=== PATIENT | male | born 1925 | race Caucasian/White ===

== ENCOUNTER 2017-02-10 17:33 | Inpatient (IN) | payer OTHER, MEDICARE ==
[~2017-02-10] VITALS: Ht 177.8 cm; Wt 66.5 kg
[~2017-02-10 17:33] MED LIST: PANT40IN3 PO; TAMS5CAP OR; VITATAB25 PO; ZOFR4TAB3 SL
[2017-02-10 17:46] VITALS: BP 171/89; PULSE 98; RESP 15; TEMP 97.6; O2SAT 98
[2017-02-10 18:48] VITALS: BP 200/90; PULSE 61; RESP 18; TEMP 97.9; O2SAT 98
[2017-02-10] MEDS ORDERED: SODIUM CHLORIDE 0.9% FLUSH 10 ML FLUSH IVF PRN (19:00)
[2017-02-10] MEDS ORDERED: ACETAMINOPHEN 325 MG TAB PO ONE (19:00)
[2017-02-10] MEDS ORDERED: ONDANSETRON HCL 4 MG/2 ML VIAL IM ONE (19:00)
[2017-02-10] MEDS: METOPROLOL TARTRATE 5 MG/5 ML VIAL IVS SCH ×3 (19:05→20:36)
--- NOTE | 2017-02-10 19:07 | PD ---
HPI Chief Complaint: Headache Time Seen by Provider: 19:02 Travel History International Travel<30 days: No Contact w/Intl Traveler<30days: No Traveled to known affect area: No History of Present Illness HPI 89-year-old male presents the emergency department with history of fall 2 nights prior to visit with hitting the top of his head in his home. Patient states he woke up this morning with headache, and has had 5 episodes of vomiting today. He has had photophobia today as well. Patient states his headache is the worst that he's ever had. He states it is currently a 9 out of 10 He states he had no loss of consciousness when he fell. He denies any other injury when he fell. He states Saturday he did not have a headache, but this morning he woke up with one. He denies any other significant neurological complaints. Currently the patient is hypertensive, and he states he is normally not and does not take blood pressure medications. He states he only takes medications for his prostate. Patient is allergic to aspirin and seafood. PFSH Past Medical History Blood Disorders: No Cancer: No Cardiovascular Problems: No Endocrine: No Gastrointestinal Disorders: Yes (cholecystectomy in 1979) Genitourinary: No Hypertension: Yes Immune Disorder: No Musculoskeletal: No Neurologic: No Psychiatric: No Reproductive: Yes (enlarged prostate) Respiratory: No Immunizations Current: Yes Tetanus Vaccination: Unknown Past Surgical History Appendectomy: Yes (1953) Cholecystectomy: Yes (1979) Other Surgery: Yes Social History Alcohol Use: Yes (1 wine per day) Tobacco Use: No (quit 60yrs ago) Substance Use: No Allergies-Medications (Allergen,Severity, Reaction): Coded Allergies: Seafood (Verified Allergy, Severe, N/V, 02/10/17) Aspirin (Verified Allergy, Unknown, 02/10/17) Reported Meds & Prescriptions Reported Meds & Active Scripts Active Reported Latanoprost Opth Drops (Latanoprost) 0.005% Drops 1 Drop EACH EYE HS Refrigerate until opened. Vitamin E 200 Unit Cap 200 Units PO DAILY D-2000 Maximum Strength (Cholecalciferol) 2,000 Unit Tab 2,000 Units PO DAILY Tamsulosin (Tamsulosin HCl) 0.4 Mg Cap 0.04 Mg PO HS Review of Systems General / Constitutional: No: Fever Eyes: Positive: Photophobia, No: Diploplia, Blurred Vision, Drainage, Redness , Foreign Body Sensation, Pain, Tearing, Blind Spots, Visual changes, Blindness HENT: Positive: Headaches, No: Vertigo, Lightheadedness, Sore Throat, Rhinitis , Rhinorrhea, Congestion, Nosebleed, Neck Stiffness, Neck Pain, Gingival Bleeding, Dental Difficulties, Ear Discharge, Earache Cardiovascular: No: Chest Pain or Discomfort Respiratory: No: Shortness of Breath Gastrointestinal: Positive: Nausea, Vomiting, No: Diarrhea, Abdominal Pain Genitourinary: No: Dysuria Musculoskeletal: No: Pain Skin: No Rash Neurologic: No: Weakness Psychiatric: No: Depression Endocrine: No: Polydipsia Hematologic/Lymphatic: No: Easy Bruising Physical Exam Narrative GENERAL: Patient is alert and oriented but appears in moderate distress. SKIN: Warm and dry. Normal color. Normal turgor HEAD: Atraumatic. Normocephalic. Patient has tender area to the apex of the skull midline. There is no open wound, abrasion, or bony depression. EYES: Pupils equal and round. No scleral icterus. No injection or drainage. Patient does have photophobia. No nystagmus is appreciated ENT: No nasal bleeding or discharge. Mucous membranes pink and moist. Airways patent. TMs are clear bilaterally. NECK: Trachea midline. No JVD. No bony tenderness or step-off. Range of motion is full and supple without tenderness. CARDIOVASCULAR: Regular rate and rhythm. No murmurs gallops or rubs. RESPIRATORY: No accessory muscle use. Clear to auscultation. Breath sounds equal bilaterally. GASTROINTESTINAL: Abdomen soft, non-tender, nondistended. Hepatic and splenic margins not palpable. MUSCULOSKELETAL: Extremities without clubbing, cyanosis, or edema. No obvious deformities. NEUROLOGICAL: Awake and alert. No obvious cranial nerve deficits. Motor grossly within normal limits. Five out of 5 muscle strength in the arms and legs. Normal speech. PSYCHIATRIC: Appropriate mood and affect; insight and judgment normal. Data Data Last Documented VS Vital Signs Date Time Temp Pulse Resp B/P Pulse Ox O2 Delivery O2 Flow Rate FiO2 02/10/17 20:43 62 18 202/96 97 Room Air 02/10/17 18:48 97.9 Orders Complete Blood Count With Diff (02/10/17 18:57) Comprehensive Metabolic Panel (02/10/17 18:57) Ct Brain W/O Iv Contrast(Rout) (02/10/17 18:57) Ecg Monitoring (02/10/17 18:57) Iv Access Insert/Monitor (02/10/17 18:57) Oximetry (02/10/17 18:57) Sodium Chloride 0.9% Flush (Ns Flush) (02/10/17 19:00) Acetaminophen (Tylenol) (02/10/17 19:00) Ondansetron Inj (Zofran Inj) (02/10/17 19:00) Prothrombin Time / Inr (Pt) (02/10/17 18:57) Act Partial Throm Time (Ptt) (02/10/17 18:57) Metoprolol Tartrate Inj (Lopressor Inj) (02/10/17 19:00) Morphine Inj (Morphine Inj) (02/10/17 20:15) Sodium Chlorid 0.9% 500 Ml Inj (Ns 500 M (02/10/17 20:15) Ct Abd/Pel W Iv Contrast(Rout) (02/10/17 20:11) Labs Laboratory Tests Test 02/10/17 19:05 White Blood Count 7.9 TH/MM3 Red Blood Count 5.39 MIL/MM3 Hemoglobin 15.7 GM/DL Hematocrit 46.9 % Mean Corpuscular Volume 87.1 FL Mean Corpuscular Hemoglobin 29.2 PG Mean Corpuscular Hemoglobin 33.5 % Concent Red Cell Distribution Width 13.0 % Platelet Count 147 TH/MM3 Mean Platelet Volume 9.4 FL Neutrophils (%) (Auto) 80.5 % Lymphocytes (%) (Auto) 10.8 % Monocytes (%) (Auto) 8.4 % Eosinophils (%) (Auto) 0.2 % Basophils (%) (Auto) 0.1 % Neutrophils # (Auto) 6.3 TH/MM3 Lymphocytes # (Auto) 0.8 TH/MM3 Monocytes # (Auto) 0.7 TH/MM3 Eosinophils # (Auto) 0.0 TH/MM3 Basophils # (Auto) 0.0 TH/MM3 CBC Comment DIFF FINAL Differential Comment Prothrombin Time 12.3 SEC Prothromb Time International 1.1 RATIO Ratio Activated Partial 26.4 SEC Thromboplast Time Sodium Level 131 MEQ/L Potassium Level 4.2 MEQ/L Chloride Level 98 MEQ/L Carbon Dioxide Level 27.2 MEQ/L Anion Gap 6 MEQ/L Blood Urea Nitrogen 13 MG/DL Creatinine 0.94 MG/DL Estimat Glomerular Filtration 76 ML/MIN Rate Random Glucose 108 MG/DL Calcium Level 8.5 MG/DL Total Bilirubin 0.9 MG/DL Aspartate Amino Transf 18 U/L (AST/SGOT) Alanine Aminotransferase 22 U/L (ALT/SGPT) Alkaline Phosphatase 73 U/L Total Protein 6.5 GM/DL Albumin 3.3 GM/DL MDM Medical Decision Making Medical Screen Exam Complete: Yes Emergency Medical Condition: Yes Differential Diagnosis Fall. Scalp contusion. Intracranial bleed. Subarachnoid bleed. Nausea and vomiting. Narrative Course Patient appears medically stable at time of exam. Labs ordered including CBC, CMP, PT PTT and INR. CT of the brain is ordered without contrast. Patient is given Tylenol [address] showed no acute findings per radiologist. Labs show normal CBC, CMP shows sodium 131, normal potassium and chloride, BUN of 13, creatinine of 0.94. Coagulation studies show PT of 12.3, INR 1.1, APTT of 26.4. Patient is discussed with Dr. Feldman after change of shift. She recommends trial of pain medication and reassessment of blood pressure. Patient was given 4 mg morphine IV, and after 20 minutes blood pressure improved to 184/88. Patient states his headache is only slightly improved. 2114 hrs. the patient was discussed again with Dr. Feldman who recommends a trial of amlodipine and another dose of morphine IV. Call was placed to the hospitalist for admission for hypertension with headache. Diagnosis Primary Impression: Intractable headache Qualified Code: R51 - Acute intractable headache, unspecified headache type Additional Impression: Hypertension Qualified Code: I10 - Hypertension, unspecified type Admitting Information Admitting Physician Requests: Admit Condition: Stable Kalia Bell Feb 10, 2017 19:07
[2017-02-10 19:27] LABS: AUTOMATED NEUTROPHIL # 6.3 TH/MM3 (1.8-7.7); BASOPHIL % 0.1 % (0.0-2.0); EOSINOPHIL % 0.2 % (0.0-4.0); HEMATOCRIT 46.9 % (39.0-51.0); HEMO FLAGS DIFF FINAL; LYMPH % 10.8 % (9.0-44.0); LYMPHOCYTE # 0.8 TH/MM3 (1.0-4.8); MEAN CELL VOLUME 87.1 FL (80.0-100.0); MEAN CORPUSCULAR HEMOGLOBIN 29.2 PG (27.0-34.0); MEAN CORPUSCULAR HGB CONC 33.5 % (32.0-36.0); MONO % 8.4 % (0.0-8.0); NEUT % 80.5 % (16.0-70.0); PLATELET COUNT 147 TH/MM3 (150-450); RED BLOOD COUNT 5.39 MIL/MM3 (4.50-5.90); WHITE BLOOD COUNT 7.9 TH/MM3 (4.0-11.0)
[2017-02-10 19:38] LABS: APTT (PATIENT) 26.4 SEC (24.3-30.1); INTERNATIONAL NORMALIZED RATIO 1.1 RATIO; PROTHROMBIN TIME - PATIENT 12.3 SEC (9.8-11.6)
--- NOTE | 2017-02-10 19:51 | RADRPT ---
EXAM DATE/TIME: 02/10/2017 19:40 [facility] COMPARISON: No previous studies available for comparison. INDICATIONS : Fall last night with trauma to head. Cephalgia. RADIATION DOSE: 56.35 CTDIvol (mGy) MEDICAL HISTORY : Hypertension. SURGICAL HISTORY : Cholecystectomy. ENCOUNTER: Initial ACUITY: 1 day PAIN SCALE: 7/10 LOCATION: Bilateral head TECHNIQUE: Multiple contiguous axial images were obtained of the head. Using automated exposure control and adj ustment of the mA and/or kV according to patient size, radiation dose was kept as low as reasonably a chievable to obtain optimal diagnostic quality images. DICOM format image data is available electro nically for review and comparison. FINDINGS: CEREBRUM: The ventricles are normal for age. There are chronic small vessel ischemic changes. No evidence of m idline shift, mass lesion, hemorrhage or acute infarction. No extra-axial fluid collections are seen . POSTERIOR FOSSA: The cerebellum and brainstem are intact. The 4th ventricle is midline. The cerebellopontine angle i s unremarkable. EXTRACRANIAL: The visualized portion of the orbits is intact. SKULL: The calvaria is intact. No evidence of skull fracture. CONCLUSION: 1. Mild atrophy and chronic small vessel ischemic change. 2. No evidence of fracture or hemorrhage. Suraj Chakraborty MD on February 10, 2017 at 19:49 Board Certified Radiologist. This report was verified electronically.
[2017-02-10 19:57] LABS: ANION GAP 6 MEQ/L (5-15); AST (GOT) 18 U/L (15-37); BICARBONATE 27.2 MEQ/L (21.0-32.0); BLOOD UREA NITROGEN 13 MG/DL (7-18); CHLORIDE 98 MEQ/L (98-107); GLOMERULAR FILTRATION RATE 76 ML/MIN (>89); POTASSIUM 4.2 MEQ/L (3.5-5.1); SODIUM (NA) 131 MEQ/L (136-145)
[2017-02-10 19:59] LABS: ALT (GPT) 22 U/L (12-78)
[2017-02-10 20:01] LABS: ALKALINE PHOSPHATASE 73 U/L (45-117); TOTAL BILIRUBIN ADULT 0.9 MG/DL (0.2-1.0)
--- NOTE | 2017-02-10 20:03 | PD ---
Physical Exam Narrative General: The patient is a well-developed well-nourished male in no acute distress. Blood pressure on my arrival to the room is 199 systolic. Head and Neck exam: Head is normocephalic atraumatic. Eyes: EOMI, pupils are pinpoint bilaterally. Nose: Midline septum with pink mucous membranes Mouth: Dentition unremarkable. Moist mucus membranes. Posterior oropharynx is not erythematous. No tonsillar hypertrophy. Uvula midline. Airway patent. Neck: No palpable lymphadenopathy. No nuchal rigidity. No thyromegaly. No spinous process tenderness to palpation. No step-off or crepitus. No erythema or ecchymosis. Cardiovascular: Regular rate and rhythm without murmurs, gallops, or rubs. No pulse deficit to the extremities and simultaneous auscultation and palpation of his radial artery. Lungs: Clear to auscultation bilaterally. No wheezes, rhonchi, or rales. Abdomen: Soft, with tenderness on palpation of the left lower quadrant of the abdomen, no other tenderness on palpation of the other quadrants. No guarding, rebound, or rigidity. Negative Pemberton sign. Normal bowel sounds are audible. No tenderness on palpation of McBurney's point. Extremities: No clubbing, cyanosis, or edema. 2+ pulses in all 4 extremities. After tenderness on palpation. Back: No costovertebral angle tenderness to palpation. Neurologic Exam: Cranial nerves 2-12 were intact on exam. Strength is 5/5 in all 4 extremities. No sensory deficits noted. Skin Exam: No rash noted. Intact skin that is warm and dry. Data Data Last Documented VS Vital Signs Date Time Temp Pulse Resp B/P Pulse Ox O2 Delivery O2 Flow Rate FiO2 02/10/17 20:43 62 18 202/96 97 Room Air 02/10/17 18:48 97.9 Orders Complete Blood Count With Diff (02/10/17 18:57) Comprehensive Metabolic Panel (02/10/17 18:57) Ct Brain W/O Iv Contrast(Rout) (02/10/17 18:57) Ecg Monitoring (02/10/17 18:57) Iv Access Insert/Monitor (02/10/17 18:57) Oximetry (02/10/17 18:57) Sodium Chloride 0.9% Flush (Ns Flush) (02/10/17 19:00) Acetaminophen (Tylenol) (02/10/17 19:00) Ondansetron Inj (Zofran Inj) (02/10/17 19:00) Prothrombin Time / Inr (Pt) (02/10/17 18:57) Act Partial Throm Time (Ptt) (02/10/17 18:57) Metoprolol Tartrate Inj (Lopressor Inj) (02/10/17 19:00) Morphine Inj (Morphine Inj) (02/10/17 20:15) Sodium Chlorid 0.9% 500 Ml Inj (Ns 500 M (02/10/17 20:15) Ct Abd/Pel W Iv Contrast(Rout) (02/10/17 20:11) Enalaprilat Inj (Vasotec Inj) (02/10/17 21:15) Morphine Inj (Morphine Inj) (02/10/17 21:30) Admit Order (Ed Use Only) (02/10/17 21:23) Labs Laboratory Tests Test 02/10/17 19:05 White Blood Count 7.9 TH/MM3 Red Blood Count 5.39 MIL/MM3 Hemoglobin 15.7 GM/DL Hematocrit 46.9 % Mean Corpuscular Volume 87.1 FL Mean Corpuscular Hemoglobin 29.2 PG Mean Corpuscular Hemoglobin 33.5 % Concent Red Cell Distribution Width 13.0 % Platelet Count 147 TH/MM3 Mean Platelet Volume 9.4 FL Neutrophils (%) (Auto) 80.5 % Lymphocytes (%) (Auto) 10.8 % Monocytes (%) (Auto) 8.4 % Eosinophils (%) (Auto) 0.2 % Basophils (%) (Auto) 0.1 % Neutrophils # (Auto) 6.3 TH/MM3 Lymphocytes # (Auto) 0.8 TH/MM3 Monocytes # (Auto) 0.7 TH/MM3 Eosinophils # (Auto) 0.0 TH/MM3 Basophils # (Auto) 0.0 TH/MM3 CBC Comment DIFF FINAL Differential Comment Prothrombin Time 12.3 SEC Prothromb Time International 1.1 RATIO Ratio Activated Partial 26.4 SEC Thromboplast Time Sodium Level 131 MEQ/L Potassium Level 4.2 MEQ/L Chloride Level 98 MEQ/L Carbon Dioxide Level 27.2 MEQ/L Anion Gap 6 MEQ/L Blood Urea Nitrogen 13 MG/DL Creatinine 0.94 MG/DL Estimat Glomerular Filtration 76 ML/MIN Rate Random Glucose 108 MG/DL Calcium Level 8.5 MG/DL Total Bilirubin 0.9 MG/DL Aspartate Amino Transf 18 U/L (AST/SGOT) Alanine Aminotransferase 22 U/L (ALT/SGPT) Alkaline Phosphatase 73 U/L Total Protein 6.5 GM/DL Albumin 3.3 GM/DL [facility] Medical Record Reviewed: Yes Supervised Visit with AUTUMN: Yes Interpretation(s) Last Impressions Abdomen/Pelvis CT 02/10/172010 Signed Impressions: Service Date/Time: Friday, February 10, 2017 22:04 - CONCLUSION: 1. No evidence of acute visceral injury. 2. Unremarkable bowel gas pattern. 3. The prostate gland remains markedly enlarged and. 4. Small hiatal hernia. Suraj Chakraborty MD Head CT 02/10/171856 Signed Impressions: Service Date/Time: Friday, February 10, 2017 19:40 - CONCLUSION: 1. Mild atrophy and chronic small vessel ischemic change. 2. No evidence of fracture or hemorrhage. Suraj Chakraborty MD Narrative Course I, Dr. Feldman, have reviewed the advance practice practitioner's documentation and am in agreement, met with the patient face to face, made the diagnosis, and the medical decision making was done by me. *My assessment and Findings: The patient is an 89-year-old male who presents to [facility] emergency Department with a history of slipping and falling when getting out of bed in the night in the early hours of Saturday morning. The patient reports that he fell and hit his head. He denies having any loss of consciousness. He denies any neck pain. He reports that since then he had a headache across his forehead and behind his eyes. He reports that he has light sensitivity. He reports that today he has had nausea and vomiting 5. He reports that he last moved his bowels yesterday. He denies having any blood in his stool or black or tarry stools. The patient reports having history of glaucoma. The patient reports that he has been using his eyedrops regularly. Otherwise on review of systems, he denies having any recent fevers, cough, congestion, sore throat, postnasal drip, nasal discharge, chest pain, shortness of breath, urinary symptoms, or other neurologic symptoms. His physical examination is unremarkable except for having left lower quadrant abdominal pain on palpation. Neurologic examination is within normal limits. The patient had laboratory studies and imaging ordered. CT scan of the brain showed mild atrophy and chronic small vessel ischemic change, no evidence of fracture or hemorrhage. CT scan of abdomen and pelvis showed no evidence of acute visceral injury, unremarkable bowel gas pattern, prostate gland remains enlarged and he has a small hiatal hernia. The patient was given Vasotec 1.25 mg IV for continued blood pressure medication after the patient's headache began to improve with morphine and Zofran administration. The patients results were discussed with the patient, including the plan of care. I explained that further testing and/ or monitoring is indicated based on the patients history, examination, and/ or laboratory findings. Therefore, I recommended admission for additional evaluation. The patient expressed understanding and was agreeable with this plan. The patient was admitted to the hospital in stable condition and sent to a bed under the care of [facility] service. Diagnosis Primary Impression: Intractable headache Qualified Code: R51 - Acute intractable headache, unspecified headache type Additional Impressions: Nausea & vomiting Qualified Code: R11.2 - Non-intractable vomiting with nausea, unspecified vomiting type Hypertension Qualified Code: I10 - Hypertension, unspecified type Admitting Information Admitting Physician Requests: Observation Condition: Stable Belen Feldman MD Feb 10, 2017 20:03
[2017-02-10] MEDS ORDERED: SODIUM CHLORID 0.9% 500 ML INJ 500 ML IV ONE (20:15)
[2017-02-10] MEDS ORDERED: MORPHINE SULFATE 8 MG/ML INJ IV PUSH ONE (20:15)
[2017-02-10] MEDS ORDERED: TAMS0.4C4 PO (20:40)
[2017-02-10] MEDS ORDERED: VITA200C3 PO (20:40)
[2017-02-10] MEDS ORDERED: D-20TAB3 PO (20:40)
[2017-02-10] MEDS ORDERED: GABA600T PO (20:40)
[2017-02-10] MEDS ORDERED: LATA0.002 EACH EYE (20:41)
[2017-02-10 20:43] VITALS: BP 202/96; PULSE 62; RESP 18; O2SAT 97
[2017-02-10] MEDS ORDERED: ENALAPRILAT 1.25 MG/ML VIAL IV PUSH ONE (21:15)
[2017-02-10] MEDS ORDERED: MORPHINE SULFATE 4 MG/ML INJ IV PUSH ONE (21:30)
[2017-02-10] MEDS ORDERED: SENNOSIDES 8.6 MG TAB PO PRN (21:45)
[2017-02-10] MEDS ORDERED: BISACODYL 10 MG SUPP RECTAL PRN (21:45)
[2017-02-10] MEDS ORDERED: NALOXONE HCL 0.4 MG/ML AMP IV PRN (21:45)
[2017-02-10] MEDS ORDERED: ACETAMINOPHEN 325 MG TAB PO PRN (21:45)
[2017-02-10] MEDS ORDERED: LACTULOSE SYRUP 20 GM/30 ML CUP PO PRN (21:45)
[2017-02-10] MEDS ORDERED: MAGNESIUM HYDROXIDE SUSP 30 ML CUP PO PRN (21:45)
[2017-02-10] MEDS ORDERED: SODIUM CHLORIDE 0.9% FLUSH 10 ML FLUSH IV FLUSH PRN (21:45)
[2017-02-10 21:54] VITALS: BP 184/88; PULSE 61; RESP 16; O2SAT 97
[2017-02-10] MEDS: ONDANSETRON HCL 4 MG/2 ML VIAL IVP PRN (22:00)
[2017-02-10] MEDS ORDERED: IOHEXOL 350 MG/ML 10 ML VIAL (for RAD DIAG) IV ONE (22:06)
[2017-02-10 22:20] VITALS: BP 196/86; PULSE 66; RESP 18; O2SAT 96
--- NOTE | 2017-02-10 22:25 | RADRPT ---
EXAM DATE/TIME: 02/10/2017 22:04 [facility] COMPARISON: CT ABDOMEN & PELVIS W CONTRAST, March 17, 2016, 1:23. INDICATIONS : Trauma, fall last night. Left lower quadrant pain with nausea and vomiting. IV CONTRAST: 95 cc Omnipaque 350 (iohexol) IV ORAL CONTRAST: No oral contrast ingested. RADIATION DOSE: 5.85 CTDIvol (mGy) MEDICAL HISTORY : Hypertension. SURGICAL HISTORY : Cholecystectomy. Appendectomy. ENCOUNTER: Initial ACUITY: 1 day PAIN SCALE: 7/10 LOCATION: Left lower quadrant TECHNIQUE: Volumetric scanning of the abdomen and pelvis was performed. Using automated exposure control and ad justment of the mA and/or kV according to patient size, radiation dose was kept as low as reasonably achievable to obtain optimal diagnostic quality images. DICOM format image data is available electro nically for review and comparison. FINDINGS: LOWER LUNGS: The visualized lower lungs are clear. LIVER: Homogeneous density without lesion. There is no dilation of the biliary tree. Status post cholecyste ctomy. SPLEEN: Normal size without lesion. PANCREAS: Within normal limits. KIDNEYS: Normal in size and shape. There is no mass, stone or hydronephrosis. ADRENAL GLANDS: Within normal limits. VASCULAR: There is no aortic aneurysm. BOWEL/MESENTERY: There is a small hiatal hernia. The stomach, small bowel, and colon demonstrate no acute abnormality. There is no free intraperitoneal air or fluid. ABDOMINAL WALL: Within normal limits. RETROPERITONEUM: There is no lymphadenopathy. BLADDER: No wall thickening or mass. REPRODUCTIVE: The prostate gland remains markedly enlarged and inhomogeneous. INGUINAL: There is no lymphadenopathy or hernia. MUSCULOSKELETAL: Within normal limits for patient age. CONCLUSION: 1. No evidence of acute visceral injury. 2. Unremarkable bowel gas pattern. 3. The prostate gland remains markedly enlarged and. 4. Small hiatal hernia. Suraj Chakraborty MD on February 10, 2017 at 22:21 Board Certified Radiologist. This report was verified electronically.
--- NOTE | 2017-02-10 23:04 | HHI.HP ---
[facility] Service [facility] Primary Care Physician Pj Schulte MD Admission Diagnosis Intractible LI with Hypertension Diagnoses: Chief Complaint: Headache Travel History International Travel<30 Days: No Contact w/Intl Traveler <30 Da: No Traveled to Known Affected Are: No History of Present Illness Written by CAREN Vegas acting as scribe for Dr. Isabel] on 02/10/17 at 22:57. 89 y/o male with a history of enlarged prostate and glaucoma presented to the ED with complaints of a severe headache, nausea, and vomiting. Patient states he was trying to get out of bed on Saturday night and fell and hit his head. The last few days he began to have increased headaches, nausea and vomiting. Pain is throbbing on top of his head and behind his eyes. Denies any chest pain, or sob. Review of Systems Constitutional: DENIES: Fever, Chills Respiratory: DENIES: Cough, Sputum production, Shortness of breath Cardiovascular: DENIES: Chest pain Gastrointestinal: COMPLAINS OF: Nausea, Vomiting Genitourinary: DENIES: Hematuria, Dysuria Musculoskeletal: DENIES: Back pain, Neck pain Integumentary: DENIES: Rash Hematologic/lymphatic: DENIES: Lymphadenopathy Immunologic/allergic: DENIES: Urticaria Neurologic: COMPLAINS OF: Headache Past Family Social History Past Medical History Enlarged prostate Chronic back pain Glaucoma Past Surgical History Multiple eye surgeries Reported Medications Reported Meds & Active Scripts Active Reported Latanoprost Opth Drops (Latanoprost) 0.005% Drops 1 Drop EACH EYE HS Refrigerate until opened. Vitamin E 200 Unit Cap 200 Units PO DAILY D-2000 Maximum Strength (Cholecalciferol) 2,000 Unit Tab 2,000 Units PO DAILY Tamsulosin (Tamsulosin HCl) 0.4 Mg Cap 0.04 Mg PO HS Allergies: Coded Allergies: Seafood (Verified Allergy, Severe, N/V, 02/10/17) Aspirin (Verified Allergy, Unknown, 02/10/17) Active Ordered Medications Current Medications Medications (Trade) Dose Ordered Sig/Jacobo Route Start Time Stop Time Status Last Admin (NS Flush) 2 ml UNSCH PRN IV FLUSH 02/10/17 21:45 (NS Flush) 2 ml BID IV FLUSH 02/11/17 09:00 (Tylenol) 650 mg Q4H PRN PO 02/10/17 21:45 (Zofran Inj) 4 mg Q6H PRN IVP 02/10/17 21:45 02/10/17 22:00 (Narcan Inj) 0.4 mg UNSCH PRN IV 02/10/17 21:45 (Clementina-Colace) 1 tab BID PO 02/11/17 09:00 (Milk Of Magnesia Liq) 30 ml Q12H PRN PO 02/10/17 21:45 (Senokot) 17.2 mg Q12H PRN PO 02/10/17 21:45 (Dulcolax Supp) 10 mg DAILY PRN RECTAL 02/10/17 21:45 (Lactulose Liq) 30 ml DAILY PRN PO 02/10/17 21:45 Family History Sister: Cancer No family history of heart disease or DM Social History Tobacco use: Quit age 36 Alcohol use: glass of wine a day Illicit drug use: Denies Physical Exam Vital Signs Vital Signs Date Time Temp Pulse Resp B/P Pulse Ox O2 Delivery O2 Flow Rate FiO2 02/10/17 22:20 66 18 196/86 96 Room Air 02/10/17 21:54 61 16 184/88 97 Room Air 02/10/17 20:43 62 18 202/96 97 Room Air 02/10/17 18:48 67 18 98 Room Air 02/10/17 18:48 97.9 61 18 200/90 98 02/10/17 17:46 97.6 98 15 171/89 98 Physical Exam GENERAL: This is a well-nourished, well-developed patient, in no apparent distress. SKIN: No rashes, ecchymoses or lesions. Cool and dry. HEAD: Atraumatic. Normocephalic. No temporal or scalp tenderness. EYES: Pupils equal round and reactive. Extraocular motions intact. No scleral icterus. No injection or drainage. ENT: Nose without bleeding, purulent drainage or septal hematoma. Throat without erythema, tonsillar hypertrophy or exudate. Uvula midline. Airway patent. NECK: Trachea midline. No JVD or lymphadenopathy. Supple, nontender, no meningeal signs. CARDIOVASCULAR: Regular rate and rhythm without murmurs, gallops, or rubs. RESPIRATORY: Clear to auscultation. Breath sounds equal bilaterally. No wheezes , rales, or rhonchi. GASTROINTESTINAL: Abdomen soft, RLQ tenderness, nondistended. No hepato- splenomegaly, or palpable masses. No guarding. MUSCULOSKELETAL: Extremities without clubbing, cyanosis, or edema. No joint tenderness, effusion, or edema noted. Left calf tenderness. Negative Homans sign bilaterally. NEUROLOGICAL: Awake and alert. Motor and sensory grossly within normal limits. Five out of 5 muscle strength in all muscle groups. Normal speech. Laboratory Laboratory Tests Test 02/10/17 19:05 White Blood Count 7.9 Red Blood Count 5.39 Hemoglobin 15.7 Hematocrit 46.9 Mean Corpuscular Volume 87.1 Mean Corpuscular Hemoglobin 29.2 Mean Corpuscular Hemoglobin 33.5 Concent Red Cell Distribution Width 13.0 Platelet Count 147 Mean Platelet Volume 9.4 Neutrophils (%) (Auto) 80.5 Lymphocytes (%) (Auto) 10.8 Monocytes (%) (Auto) 8.4 Eosinophils (%) (Auto) 0.2 Basophils (%) (Auto) 0.1 Neutrophils # (Auto) 6.3 Lymphocytes # (Auto) 0.8 Monocytes # (Auto) 0.7 Eosinophils # (Auto) 0.0 Basophils # (Auto) 0.0 CBC Comment DIFF FINAL Differential Comment Prothrombin Time 12.3 Prothromb Time International 1.1 Ratio Activated Partial 26.4 Thromboplast Time Sodium Level 131 Potassium Level 4.2 Chloride Level 98 Carbon Dioxide Level 27.2 Anion Gap 6 Blood Urea Nitrogen 13 Creatinine 0.94 Estimat Glomerular Filtration 76 Rate Random Glucose 108 Calcium Level 8.5 Total Bilirubin 0.9 Aspartate Amino Transf 18 (AST/SGOT) Alanine Aminotransferase 22 (ALT/SGPT) Alkaline Phosphatase 73 Total Protein 6.5 Albumin 3.3 Result Diagram: 02/10/17190402/10/171904 Imaging Last Impressions Abdomen/Pelvis CT 02/10/172010 Signed Impressions: Service Date/Time: Friday, February 10, 2017 22:04 - CONCLUSION: 1. No evidence of acute visceral injury. 2. Unremarkable bowel gas pattern. 3. The prostate gland remains markedly enlarged and. 4. Small hiatal hernia. Suraj Chakraborty MD Head CT 02/10/17 [id number] Signed Impressions: Service Date/Time: Friday, February 10, 2017 19:40 - CONCLUSION: 1. Mild atrophy and chronic small vessel ischemic change. 2. No evidence of fracture or hemorrhage. Suraj Chakraborty MD Assessment and Plan Problem List: (1) Intractable headache ICD Code: R51 Status: Acute (2) Hypertension ICD Code: I10 Status: Acute Assessment and Plan 89 y/o male with a history of enlarged prostate and glaucoma presented to the ED with complaints of a severe headache, nausea, and vomiting. Intractable headache, likely a result of elevated hypertension Head CT reviewed and is unremarkable -Cardene drip for BP control -Monitor vitals -Morphine IV for pain management BPH, chronic -Restart home medications Flomax DVT prophylaxis: SCDs This note was transcribed by idlip Jain. I, Dr. Jn Corona personally performed the history, physical exam, and medical decision making; and confirmed the accuracy of the information in the transcribed note. Authenticated by Dr. Jn Corona on 02/11/17 at 01:14. Discussed Condition With Patient and patient's Physician Certification 2 Midnight Certification Type: Admission for Inpatient Services Order for Inpatient Services The services are ordered in accordance with Medicare regulations or non- Medicare payer requirements, as applicable. In the case of services not specified as inpatient-only, they are appropriately provided as inpatient services in accordance with the 2-midnight benchmark. Estimated LOS (days): 2 days is the estimated time the patient will need to remain in the hospital, assuming treatment plan goals are met and no additional complications. Post-Hospital Plan: Home Problem Qualifiers (1) Intractable headache: Qualified Code: R51 - Acute intractable headache, unspecified headache type (2) Hypertension: Qualified Code: I10 - Hypertension, unspecified type Princess Jain Feb 10, 2017 23:03 Jn Corona MD Feb 11, 2017 01:14
[2017-02-10] MEDS ORDERED: niCARdipine INJ 25 MG in SODIUM CHLOR 0.9% 250 ML INJ 250 ML IV SCH (23:15)
[2017-02-10 23:27] VITALS: BP 196/86; PULSE 62; RESP 16; O2SAT 97
[2017-02-11] VITALS (27 sets, daily range): BP systolic 123–186; BP diastolic 57–139; PULSE 57–72; RESP 14–43; TEMP 96.7–98.8; O2SAT 94–97
[2017-02-11] MEDS ORDERED: BENZOCAINE 6 MG/MENTHOL 10 MG LOZENGE BUCCAL PRN (01:15)
[2017-02-11] MEDS ORDERED: MORPHINE SULFATE 8 MG/ML INJ IV PUSH PRN (01:15)
[2017-02-11] MEDS ORDERED: PROCHLORPERAZINE INJ 10 MG/2 ML VIAL IV PUSH ONE (01:15)
[2017-02-11] MEDS ORDERED: CHLORHEXIDINE GLUCONATE 2 % 1 PACK (2 CLOTHS)(extra cloths) TOPICAL PRN (01:45)
[2017-02-11] MEDS: CHLORHEXIDINE GLUCONATE 2 % 1 PACK (2 CLOTHS)(taper/protocol) TOPICAL SCH (04:00)
[2017-02-11 05:56] LABS: BICARBONATE 26.2 MEQ/L (21.0-32.0); POTASSIUM 3.6 MEQ/L (3.5-5.1)
[2017-02-11] MEDS ORDERED: DOCUSATE SODIUM 50 MG/SENNA 8.6 MG TAB PO SCH (09:00)
[2017-02-11] MEDS: SODIUM CHLORIDE 0.9% FLUSH 10 ML FLUSH IV FLUSH SCH ×2 (09:00→22:50)
--- NOTE | 2017-02-11 09:13 | HHI.PR ---
Subjective Remarks Follow-up malignant hypertensive emergency 02/11/17-patient seen and examined, reports improvement of headache although still 4/10 and denies any visual changes. Had one episode of emesis last night otherwise stable this morning. Objective Vitals Vital Signs Date Time Temp Pulse Resp B/P Pulse Ox O2 Delivery O2 Flow Rate FiO2 02/11/17 06:00 60 02/11/17 04:00 60 02/11/17 04:00 97.6 60 16 123/59 94 02/11/17 02:08 96.7 67 20 127/57 94 02/11/17 01:31 96 02/11/17 00:11 57 16 163/83 96 Room Air 02/11/17 00:10 57 16 170/80 96 Room Air 02/11/17 00:03 57 16 170/80 97 Room Air 02/10/17 23:27 62 16 196/86 97 Room Air 02/10/17 22:20 66 18 196/86 96 Room Air 02/10/17 21:54 61 16 184/88 97 Room Air 02/10/17 20:43 62 18 202/96 97 Room Air 02/10/17 18:48 67 18 98 Room Air 02/10/17 18:48 97.9 61 18 200/90 98 02/10/17 17:46 97.6 98 15 171/89 98 I/O 02/10/17 02/10/17 02/10/17 02/11/17 02/11/17 02/11/17 07:00 15:00 23:00 07:00 15:00 23:00 Intake Total 247 ml Output Total 725 ml Balance -478 ml Intake Oral 120 ml IV Total 127 ml Output Urine Total 725 ml # Voids 3 # Bowel Movements 0 Result Diagram: 02/10/17 1905 02/11/17 0436 Imaging Last Impressions Abdomen/Pelvis CT 02/10/172010 Signed Impressions: Service Date/Time: Friday, February 10, 2017 22:04 - CONCLUSION: 1. No evidence of acute visceral injury. 2. Unremarkable bowel gas pattern. 3. The prostate gland remains markedly enlarged and. 4. Small hiatal hernia. Suraj Chakraborty MD Head CT 02/10/17 [id number] Signed Impressions: Service Date/Time: Friday, February 10, 2017 19:40 - CONCLUSION: 1. Mild atrophy and chronic small vessel ischemic change. 2. No evidence of fracture or hemorrhage. Suraj Chakraborty MD Objective Remarks GENERAL: NAD SKIN: Warm and dry. HEAD: Normocephalic. EYES: No scleral icterus. No injection or drainage. NECK: Supple, trachea midline. No JVD or lymphadenopathy. CARDIOVASCULAR: Regular rate and rhythm without murmurs, gallops, or rubs. RESPIRATORY: Breath sounds equal bilaterally. No accessory muscle use. GASTROINTESTINAL: Abdomen soft, non-tender, nondistended. MUSCULOSKELETAL: No cyanosis, or edema. BACK: Nontender without obvious deformity. No CVA tenderness. A/P Problem List: (1) Hypertensive emergency ICD Code: I16.1 Status: Acute (2) Intractable headache ICD Code: R51 Status: Acute (3) Hypertension ICD Code: I10 Status: Acute Assessment and Plan 89-year-old man with Hypertensive emergency Currently on Cardene drip and SBP less than 160 this morning Wean off Cardene drip and start Norvasc 5 mg daily Check 2-D echo, lipid profile Intractable headache Secondary to hypertensive emergency Improving, treat as in above Intractable emesis without vomiting CT abdomen/pelvics noted without any evidence of acute visceral injury Antiemetic when necessary Benign prostatic hyperplasia Continue Flomax DVT prophylaxis SCDs Patient to remain in ICU until blood pressure stable on oral medication then transfer to med/Surg thompson Total critical care spent 32 minutes Problem Qualifiers (1) Intractable headache: Qualified Code: R51 - Acute intractable headache, unspecified headache type (2) Hypertension: Qualified Code: I10 - Hypertension, unspecified type Jose Mendez MD Feb 11, 2017 09:13
[2017-02-11] MEDS ORDERED: hydrALAZINE HCL 25 MG TAB PO PRN (09:15)
[2017-02-11] MEDS ORDERED: ENALAPRILAT 1.25 MG/ML VIAL IV PUSH PRN (09:15)
[2017-02-11] MEDS ORDERED: amLODIPine BESYLATE 5 MG TAB PO SCH (09:15)
[2017-02-11] MEDS: TAMSULOSIN HCL 0.4 MG CAP PO SCH (22:50)
[2017-02-11] MEDS: LATANOPROST 0.005% OPHT SOLN 2.5 ML BTL EACH EYE SCH (23:46)
[2017-02-12] VITALS (23 sets, daily range): BP systolic 144–193; BP diastolic 67–89; PULSE 62–77; RESP 13–25; TEMP 97.7–98.4; O2SAT 93–97
[2017-02-12] MEDS: CHLORHEXIDINE GLUCONATE 2 % 1 PACK (2 CLOTHS)(taper/protocol) TOPICAL SCH (03:08)
[2017-02-12] MEDS: ONDANSETRON HCL 4 MG/2 ML VIAL IVP PRN (08:56)
[2017-02-12] MEDS: SODIUM CHLORIDE 0.9% FLUSH 10 ML FLUSH IV FLUSH SCH ×2 (09:00→21:11)
--- NOTE | 2017-02-12 09:00 | HHI.PR ---
Subjective Remarks Follow-up malignant hypertensive emergency 02/11/17-patient seen and examined, reports improvement of headache although still 4/10 and denies any visual changes. Had one episode of emesis last night otherwise stable this morning. 02/12/17-patient seen and examined, complains of headaches as well as nausea but no emesis morning. BP up but patient denies any chest pain or shortness of breath Objective Vitals Vital Signs Date Time Temp Pulse Resp B/P Pulse Ox O2 Delivery O2 Flow Rate FiO2 02/12/17 06:00 71 02/12/17 04:00 98.4 65 20 173/80 95 02/12/17 04:00 65 02/12/17 02:00 62 02/12/17 00:00 63 02/12/17 00:00 97.7 62 20 188/85 94 02/11/17 22:00 62 02/11/17 20:00 71 02/11/17 20:00 98.8 71 22 186/139 96 02/11/17 16:00 98.2 66 20 157/75 97 02/11/17 15:33 64 19 159/77 96 02/11/17 15:30 65 19 176/78 96 02/11/17 15:00 65 16 164/76 96 02/11/17 14:30 62 14 150/69 95 02/11/17 14:00 63 18 154/70 96 02/11/17 13:31 72 43 175/78 95 02/11/17 13:00 63 20 136/65 96 02/11/17 12:30 63 18 137/66 95 02/11/17 12:00 65 22 140/67 96 02/11/17 11:30 63 14 136/65 94 02/11/17 11:00 63 15 142/65 95 02/11/17 10:30 65 16 125/62 96 02/11/17 10:00 97.6 66 19 147/67 96 02/11/17 09:30 65 19 144/67 96 02/11/17 09:00 61 17 148/67 96 I/O 02/11/17 02/11/17 02/11/17 02/12/17 02/12/17 02/12/17 06:59 14:59 22:59 06:59 14:59 22:59 Intake Total 247 ml 480 ml 300 ml 0 ml Output Total 725 ml 800 ml 300 ml Balance -478 ml 480 ml -500 ml -300 ml Intake Oral 120 ml 480 ml 300 ml 0 ml IV Total 127 ml 0 ml 0 ml Output Urine Total 725 ml 800 ml 300 ml # Voids 3 10 # Bowel Movements 0 0 0 0 Result Diagram: 02/10/17 1905 02/11/17 0436 Objective Remarks GENERAL: NAD SKIN: Warm and dry. HEAD: Normocephalic. EYES: No scleral icterus. No injection or drainage. NECK: Supple, trachea midline. No JVD or lymphadenopathy. CARDIOVASCULAR: Regular rate and rhythm without murmurs, gallops, or rubs. RESPIRATORY: Breath sounds equal bilaterally. No accessory muscle use. GASTROINTESTINAL: Abdomen soft, non-tender, nondistended. MUSCULOSKELETAL: No cyanosis, or edema. BACK: Nontender without obvious deformity. No CVA tenderness. A/P Problem List: (1) Hypertensive emergency ICD Code: I16.1 Status: Acute (2) Intractable headache ICD Code: R51 Status: Acute (3) Hypertension ICD Code: I10 Status: Acute Assessment and Plan 89-year-old man with Hypertensive emergency-resolved s/p Cardene drip 2-D echo pending Hypertension_labile BP Increase Norvasc to 10 mg daily Start lisinopril 5 mg Intractable headache Secondary to hypertensive emergency Improving, treat as in above Intractable emesis without vomiting CT abdomen/pelvics noted without any evidence of acute visceral injury Antiemetic when necessary Benign prostatic hyperplasia Continue Flomax DVT prophylaxis SCDs Transfer to Med/Surg Problem Qualifiers (1) Intractable headache: Qualified Code: R51 - Acute intractable headache, unspecified headache type (2) Hypertension: Qualified Code: I10 - Hypertension, unspecified type Jose Mendez MD Feb 12, 2017 09:00
--- NOTE | 2017-02-12 09:02 | ECHRPT ---
Indication: HYPERTENSIVE HEART DISEASE CONCLUSIONS Normal left ventricular size. Moderate concentric left ventricular hypertrophy. The left ventricular systolic function is hyperdynamic with an estimated ejection fraction in the ra nge of 65- 70%. Trace mitral valve regurgitation. Mild aortic valve stenosis. There is mild tricuspid valve regurgitation. There is estimated mild pulmonary hypertension present. BP: 123 / 59 HR: 60 Rhythm: Sinus MEASUREMENTS (Male / Female) Normal Values Technical Quality:Fair 2D ECHO LV Diastolic Diameter PLAX 4.1 cm 4.2 - 5.9 / 3.9 - 5.3 cm LV Systolic Diameter PLAX 2.9 cm IVS Diastolic Thickness 1.4 cm 0.6 - 1.0 / 0.6 - 0.9 cm LVPW Diastolic Thickness 1.4 cm 0.6 - 1.0 / 0.6 - 0.9 cm LV Relative Wall Thickness 0.7 LVOT Diameter 2.0 cm Aortic Root Diameter 3.0 cm LA Systolic Diameter LX 3.2 cm 3.0 - 4.0 / 2.7 - 3.8 cm M-MODE AV Cusp Separation MM 1.9 cm DOPPLER AV Peak Velocity 127.0 cm/s AV Peak Gradient 6.5 mmHg AV Mean Gradient 4.0 mmHg AV Velocity Time Integral 24.7 cm LVOT Peak Velocity 93.2 cm/s LVOT Peak Gradient 3.5 mmHg LVOT Velocity Time Integral 18.7 cm LVOT Cardiac Index 1912.3 cm/minm AV Area Cont Eq vti 2.4 cm AV Area Cont Eq pk 2.3 cm Mitral E Point Velocity 86.9 cm/s Mitral A Point Velocity 79.5 cm/s Mitral E to A Ratio 1.1 LV E' Lateral Velocity 5.5 cm/s Mitral E to LV E' Lateral Ratio 15.9 LV E' Septal Velocity 5.2 cm/s Mitral E to LV E' Septal Ratio 16.6 TR Peak Velocity 276.0 cm/s TR Peak Gradient 30.5 mmHg PV Peak Velocity 70.7 cm/s PV Peak Gradient 2.0 mmHg FINDINGS LEFT VENTRICLE Normal left ventricular size. Moderate concentric left ventricular hypertrophy. The left ventricular systolic function is hyperdynamic with an estimated ejection fraction in the ra nge of 65- 70%. Left ventricular diastolic function parameters are normal. RIGHT VENTRICLE Normal right ventricular size and systolic function. LEFT ATRIUM The left atrial size is normal. RIGHT ATRIUM The right atrial size is normal. AORTA The aortic root and proximal ascending aorta are normal in size on limited imaging. MITRAL VALVE Trace mitral valve regurgitation. AORTIC VALVE Mild aortic valve stenosis. TRICUSPID VALVE Structurally normal tricuspid valve. There is mild tricuspid valve regurgitation. There is estimated mild pulmonary hypertension present. PULMONARY VALVE No pulmonary valve regurgitation or stenosis. VESSELS The inferior vena cava is normal in size. PERICARDIUM No pericardial effusion. Saad Feldman MD (Electronically Signed) Final Date:12 February 2017 09:01
[2017-02-12] MEDS: TAMSULOSIN HCL 0.4 MG CAP PO SCH (21:11)
[2017-02-12] MEDS: LATANOPROST 0.005% OPHT SOLN 2.5 ML BTL EACH EYE SCH (21:12)
[2017-02-13] VITALS (12 sets, daily range): BP systolic 117–170; BP diastolic 63–81; PULSE 68–87; RESP 13–19; TEMP 97.7–98; O2SAT 92–97
[2017-02-13] MEDS: CHLORHEXIDINE GLUCONATE 2 % 1 PACK (2 CLOTHS)(taper/protocol) TOPICAL SCH (04:00)
[2017-02-13] MEDS: SODIUM CHLORIDE 0.9% FLUSH 10 ML FLUSH IV FLUSH SCH (08:53)
[2017-02-13] MEDS ORDERED: LISINOPRIL 5 MG TAB PO SCH (09:00)
[2017-02-13] MEDS ORDERED: LISI-519 PO (09:26)
[2017-02-13] MEDS ORDERED: AMLO10 PO (09:26)
--- NOTE | 2017-02-13 09:27 | HHI.FF ---
Face to Face Verification Diagnosis: (1) Hypertensive emergency Physical Therapy Order: Evaluate and Treat Home Health Nursing Order: Signs/symptoms of disease process I have seen patient Iron Johnson on 02/13/17. My clinical findings support the need for the requested home health care services because: Deconditioned w/ increased weakness I certify that my clinical findings support that this patient is homebound because: Poor cardiac reserve Jose Mendez MD Feb 13, 2017 09:27
--- NOTE | 2017-02-13 09:30 | HHI.PR ---
Subjective Remarks Follow-up malignant hypertensive emergency 02/11/17-patient seen and examined, reports improvement of headache although still 4/10 and denies any visual changes. Had one episode of emesis last night otherwise stable this morning. 02/12/17-patient seen and examined, complains of headaches as well as nausea but no emesis morning. BP up but patient denies any chest pain or shortness of breath 02/13/17-patient seen and examined, reports significant improvement or nausea and headache. BP much improved. She is looking for discharge home. Objective Vitals Vital Signs Date Time Temp Pulse Resp B/P Pulse Ox O2 Delivery O2 Flow Rate FiO2 02/13/17 08:00 74 02/13/17 06:00 69 02/13/17 04:00 97.9 79 18 168/71 97 02/13/17 04:00 79 02/13/17 02:00 69 02/13/17 00:00 68 02/13/17 00:00 98.0 68 16 170/81 95 02/12/17 23:00 66 02/12/17 22:01 66 02/12/17 22:00 66 02/12/17 21:00 67 02/12/17 20:00 98.0 70 17 153/75 94 02/12/17 20:00 70 02/12/17 19:00 71 14 165/76 93 02/12/17 18:00 77 15 155/76 94 02/12/17 17:00 75 18 146/72 96 02/12/17 16:00 97.8 69 19 148/70 95 02/12/17 15:38 72 19 147/69 97 02/12/17 14:00 77 21 152/84 96 02/12/17 13:00 66 13 144/67 93 02/12/17 12:00 70 14 159/79 95 02/12/17 11:00 69 15 160/72 94 02/12/17 10:00 72 18 162/76 93 I/O 02/12/17 02/12/17 02/12/17 02/13/17 02/13/17 02/13/17 07:00 15:00 23:00 07:00 15:00 23:00 Intake Total 0 ml 480 ml 300 ml 240 ml Output Total 300 ml 500 ml 600 ml Balance -300 ml 480 ml -200 ml -360 ml Intake Oral 0 ml 480 ml 300 ml 240 ml IV Total 0 ml Output Urine Total 300 ml 500 ml 600 ml # Voids 6 # Bowel Movements 0 0 Result Diagram: 02/10/17 1905 02/11/17 0436 Imaging Last Impressions Abdomen/Pelvis CT 02/10/172010 Signed Impressions: Service Date/Time: Friday, February 10, 2017 22:04 - CONCLUSION: 1. No evidence of acute visceral injury. 2. Unremarkable bowel gas pattern. 3. The prostate gland remains markedly enlarged and. 4. Small hiatal hernia. Suraj Chakraborty MD Head CT 02/10/171856 Signed Impressions: Service Date/Time: Friday, February 10, 2017 19:40 - CONCLUSION: 1. Mild atrophy and chronic small vessel ischemic change. 2. No evidence of fracture or hemorrhage. Suraj Chakraborty MD Objective Remarks GENERAL: NAD SKIN: Warm and dry. HEAD: Normocephalic. EYES: No scleral icterus. No injection or drainage. NECK: Supple, trachea midline. No JVD or lymphadenopathy. CARDIOVASCULAR: Regular rate and rhythm without murmurs, gallops, or rubs. RESPIRATORY: Breath sounds equal bilaterally. No accessory muscle use. GASTROINTESTINAL: Abdomen soft, non-tender, nondistended. MUSCULOSKELETAL: No cyanosis, or edema. BACK: Nontender without obvious deformity. No CVA tenderness. Procedures None A/P Problem List: (1) Hypertensive emergency ICD Code: I16.1 Status: Resolved (2) Intractable headache ICD Code: R51 Status: Resolved (3) Hypertension ICD Code: I10 Status: Acute Assessment and Plan 89-year-old man with Hypertensive emergency-resolved s/p Cardene drip 2-D echo with EF 60% Hypertension_labile BP Continue Norvasc 10 mg daily Start lisinopril 5 mg Intractable headache-resolved Secondary to hypertensive emergency Improving, treat as in above Intractable emesis without vomiting-resolved CT abdomen/pelvics noted without any evidence of acute visceral injury Antiemetic when necessary Benign prostatic hyperplasia Continue Flomax DVT prophylaxis SCDs Problem Qualifiers (1) Intractable headache: Qualified Code: R51 - Acute intractable headache, unspecified headache type (2) Hypertension: Qualified Code: I10 - Hypertension, unspecified type Jose Mendez MD Feb 13, 2017 09:30
--- NOTE | 2017-02-13 09:31 | HHI.DS ---
Discharge Summary Admission Date Feb 10, 2017 at 21:26 Discharge Date: Feb 13, 2017 Admitting Diagnosis Intractible LI with Hypertension (1) Hypertensive emergency ICD Code: I16.1 (2) Intractable headache ICD Code: R51 (3) Hypertension ICD Code: I10 Procedures None Brief History - From Admission Written by CAREN Vegas acting as scribe for Dr. Isabel] on 02/10/17 at 22:57. 89 y/o male with a history of enlarged prostate and glaucoma presented to the ED with complaints of a severe headache, nausea, and vomiting. Patient states he was trying to get out of bed on Saturday night and fell and hit his head. The last few days he began to have increased headaches, nausea and vomiting. Pain is throbbing on top of his head and behind his eyes. Denies any chest pain, or sob. CBC/BMP: 02/10/17 1905 02/11/17 0436 Significant Findings Laboratory Tests Test 02/10/17 02/11/17 19:05 04:36 Platelet Count 147 TH/MM3 (150-450) Neutrophils (%) (Auto) 80.5 % (16.0-70.0) Monocytes (%) (Auto) 8.4 % (0.0-8.0) Lymphocytes # (Auto) 0.8 TH/MM3 (1.0-4.8) Prothrombin Time 12.3 SEC (9.8-11.6) Sodium Level 131 MEQ/L (136-145) Estimat Glomerular Filtration 76 ML/MIN (>89) Rate Random Glucose 108 MG/DL 116 MG/DL (74-106) (74-106) Albumin 3.3 GM/DL (3.4-5.0) PE at Discharge GENERAL: NAD SKIN: Warm and dry. HEAD: Normocephalic. EYES: No scleral icterus. No injection or drainage. NECK: Supple, trachea midline. No JVD or lymphadenopathy. CARDIOVASCULAR: Regular rate and rhythm without murmurs, gallops, or rubs. RESPIRATORY: Breath sounds equal bilaterally. No accessory muscle use. GASTROINTESTINAL: Abdomen soft, non-tender, nondistended. MUSCULOSKELETAL: No cyanosis, or edema. BACK: Nontender without obvious deformity. No CVA tenderness. Hospital Course Patient admitted secondary to hypertensive emergency/he was treated with Cardene drip with significant improvement of BP. Patient was then started on initially Norvasc 5 mg which was increased to 10 daily along with lisinopril 5 mg attitude regiment. Anti-medic was provided and patient's symptoms of nausea improved. Treatment for other chronic medical conditions were resumed. PT was consulted. DVT and GI prophylaxis were provided. Prior to discharge, patient' s condition improved and vitals remained stable. Pt Condition on Discharge: Stable Discharge Disposition: Disch w/ Home Health Serv Discharge Time: > 30 minutes Discharge Instructions DIET: Follow Instructions for: Heart Healthy Diet Activities you can perform: Regular-No Restrictions Follow up Referrals: PCP Follow-up - 1 Week New Medications: Amlodipine (Norvasc) 10 Mg Tab 10 MG PO DAILY Blood Pressure Management #30 Ref 3 TAB Lisinopril (Lisinopril) 5 Mg Tab 5 MG PO DAILY Blood Pressure Management #30 Ref 3 TAB Continued Medications: Cholecalciferol (D-2000 Maximum Strength) 2,000 Unit Tab 2000 UNITS PO DAILY Nutritional Supplement #30 Ref 0 TAB Latanoprost Opth Drops (Latanoprost Opth Drops) 0.005% Drops 1 DROP EACH EYE HS Refrigerate until opened. Glaucoma #2.5 Ref 0 ML Tamsulosin (Tamsulosin) 0.4 Mg Cap 0.04 MG PO HS Manage Prostate Problems #30 Ref 0 CAP Vitamin E (Vitamin E) 200 Unit Cap 200 UNITS PO DAILY Nutritional Supplement Ref 0 CAP Jose Mendez MD Feb 13, 2017 09:31
== END 2017-02-13 14:00 | disposition home or self-care (01) | DRG 305 ==
LOC: NEPE 17:33 → NEDA 21:26 → HIME 02-11 01:00
PROVIDERS: ADMIT Hospitalist; ATTEND Hospitalist
DX: I16.1 Hypertensive emergency (principal); H40.9 Unspecified glaucoma; R51 Headache; I10 Essential (primary) hypertension; N40.0 Benign prostatic hyperplasia without lower urinary tract symptoms
CPT/HCPCS: 70450; 74177; 80048; 80053; 85025; 85610; 85730; 87641; 93306; 96372; 96374; 96375; J0780; J2270; J2405; J7040; J7050; Q9967